=== PATIENT | female | born 1950 | race American Indian/Alaskan Native ===

== ENCOUNTER 2016-12-08 18:22 | Emergency (ER) | payer OTHER ==
[2016-12-08 18:38] VITALS: BP 173/76
--- NOTE | 2016-12-08 19:29 | EDM.PDOC ---
ED HPI Trauma - General Chief Complaint: Upper Extremity Injury/Pain Stated Complaint: LEFT WRIST CAST TOO TIGHT [phone] Time Seen by Provider: 12/08/16 18:55 Source: Reports: Patient History Limitations: Reports: No limitations - History of Present Illness INITIAL COMMENTS - FREE TEXT/NARRATIVE: Cast placed 11/25 for left 5th metacarpal fracture, pain with cast and got wet today. Was told if got wet to come to ED and have cast removed. Has metal splint at home from use prior to casting. Ortho consult done via phone by Dr. Cobb to front desk auxiliary provider at [facility]. May remove cast and follow up next week as scheduled Allergies/ADRs: Allergies No Known Allergies Allergy (Verified 12/08/16 18:38) Home Medications: Ambulatory Orders Aspirin [Halfprin] 81 mg PO DAILY 03/30/15 [Confirmed 12/08/16] Hydrochlorothiazide [Hydrochlorothiazide] 25 mg PO DAILY 03/30/15 [Confirmed 06/16] Lisinopril [Lisinopril] 40 mg PO DAILY 03/30/15 [Confirmed 12/08/16] atorvaSTATin [Lipitor] 10 mg PO BEDTIME 03/30/15 [Confirmed 12/08/16] glipiZIDE [Glipizide] 10 mg PO BID 03/30/15 [Confirmed 12/08/16] Montelukast Sodium 10 mg PO BEDTIME 04/02/15 [Confirmed 12/08/16] Albuterol [Proventil HFA] 2 puff INH ASDIRECTED 05/20/16 [Confirmed 12/08/16] Moxifloxacin [Vigamox 0.5% Ophth Soln] 1 drop EYELF QID 05/20/16 [Confirmed 06/16] Ranitidine [Zantac] 150 mg PO DAILY 05/20/16 [Confirmed 12/08/16] sitaGLIPtin Phos/Metformin HCl [Janumet 50-1,000 MG] 1 tab PO BID 05/20/16 [ Confirmed 12/08/16] Past Medical History HEENT History: Reports: Cataract Other HEENT History: wears glasses while awake Cardiovascular History: Reports: High cholesterol, Hypertension Respiratory History: Reports: Asthma Other Respiratory History: PLEURISY Other Gastrointestinal History: COLONIC TUBULAR ADENOMA - REMOVED 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 History: 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: Musculoskeletal History: Reports: Arthritis Other Musculoskeletal History: DISTAL ULNA, RADIUS, RADIAL AND ULNAR STYLOIDS AND DISTAL DISPHYSIS OF FIFTH METACARPAL Neurological History: Reports: None Psychiatric History: Reports: None Endocrine/Metabolic History: Reports: Diabetes, type II Hematologic History: Reports: None Immunologic History: Reports: None Oncologic (Cancer) History: Reports: None Dermatologic History: Reports: None - Infectious Disease History Infectious Disease History: Reports: Chicken pox - Past Surgical History Head Surgeries/Procedures: Reports: None HEENT Surgical History: Reports: Cataract surgery Other HEENT Surgeries/Procedures: INJECTION IN LEFT EYE EVERY 3 MONTHS (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, 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) Cardiovascular Surgical History: Reports: None Respiratory Surgical History: Reports: None GI Surgical History: Reports: Appendectomy, Colonoscopy, EGD Female Surgical History: Reports: Tubal ligation Endocrine Surgical History: Reports: None Neurological Surgical History: Reports: Other (see below) Other Neurological Surgeries/Procedures: CYST REMOVED FROM SPINE Musculoskeletal Surgical History: Reports: Other (see below) Other Musculoskeletal Surgeries/Procedures:: back surgery Oncologic Surgical History: Reports: None Dermatological Surgical History: Reports: None Social & Family History - Family History Cardiac: Reports: Hypertension Respiratory: Reports: Asthma, COPD : Reports: Dialysis Endocrine/Metabolic: Reports: Diabetes, type II - Tobacco Use Smoking Status *Q: Former Smoker Used Tobacco, but Quit: Yes Month Tobacco Last Used: 2011 Second Hand Smoke Exposure: No - Caffeine Use Caffeine Use: Reports: Coffee - Recreational Drug Use Recreational Drug Use: No Review of Systems - Review of Systems Review Of Systems: See Below Respiratory: Reports: No Symptoms Cardiovascular: Reports: no symptoms Musculoskeletal: Reports: hand pain (left, ) Skin: Reports: no symptoms Neurological: Reports: No Symptoms Trauma Exam - Physical Exam Exam: See Below Exam Limited By: No limitations General Appearance: Reports: alert, no apparent distress Head: Reports: atraumatic Respiratory Exam: Reports: no respiratory distress Cardiovascular: Reports: normal peripheral pulses Extremities: Reports: other (left short arm cast, intact mild swelling of hand good capillary refill.) Neurologic: Denies: sensory deficit Skin: Reports: Normal color, Warm/dry. Denies: Ecchymosis ED TRAUMA EXTREMITY PROCEDURES - Additional/Other Procedure(s) Other (Free Text) Procedure(s): cast removed. skin intact no redness. post xray. good alignment , calcification of fracture left 5th metacarpal noted. Course - Vital Signs Last Recorded V/S: Last Vital Signs Temp 96.8 F 12/08/16 18:35 Pulse 69 12/08/16 18:35 Resp 18 12/08/16 18:35 BP 173/76 H 12/08/16 18:35 Pulse Ox 98 12/08/16 18:35 - Orders/Labs/Meds Orders: Active Orders 24 hr Category Date Time Status CAST CARE [OM.PC] Routine Oth 12/08/16 19:03 Ordered Departure - Departure Time of Disposition: 19:44 Disposition: Home, Self-Care 01 Condition: good Clinical Impression: Fracture of metacarpal bone Qualifiers: Encounter type: subsequent encounter Metacarpal bone: fifth Fracture type: closed Metacarpal location: unspecified portion of metacarpal Fracture alignment : nondisplaced Laterality: left Fracture healing: with delayed healing Qualified Code(s): S62.307G - Unspecified fracture of fifth metacarpal bone, left hand, subsequent encounter for fracture with delayed healing Instructions: Metacarpal Fracture, [id number] Referrals: Zeke Zhao [Primary Care Provider] - Forms: ED Department Discharge Additional Instructions: hand splint follow up with ortho next week as scheduled avoid overuse or trauma to extremity - My Orders Last 24 Hours: My Active Orders 12/08/16 19:03 CAST CARE [OM.PC] Routine - Assessment/Plan Last 24 Hours: My Active Orders 12/08/16 19:03 CAST CARE [OM.PC] Routine
== END 2016-12-08 19:48 | disposition home or self-care (01) ==
LOC: DL.ED 18:22
DX: S62.327G Displaced fracture of shaft of fifth metacarpal bone, left hand, subsequent encounter for fracture with delayed healing (principal); E78.00 Pure hypercholesterolemia, unspecified; I10 Essential (primary) hypertension; J45.909 Unspecified asthma, uncomplicated; M19.90 Unspecified osteoarthritis, unspecified site; E11.9 Type 2 diabetes mellitus without complications; Z98.49 Cataract extraction status, unspecified eye; Z90.49 Acquired absence of other specified parts of digestive tract; Z98.51 Tubal ligation status; Z87.891 Personal history of nicotine dependence
CPT/HCPCS: 73120-LT; 99283

== ENCOUNTER 2019-12-28 14:11 | Emergency (ER) | payer BC, OTHER ==
[~2019-12-28 14:11] MED LIST: Ondansetron 4 MG/2 ML SDV IVPUSH ONE
--- NOTE | 2019-12-28 14:14 | EDM.PDOC ---
ED HPI GENERAL MEDICAL PROBLEM - General Stated Complaint: SEVERE ABDOMINAL PAIN Time Seen by Provider: 12/28/19 14:04 Source of Information: Reports: Patient History Limitations: Reports: No Limitations - History of Present Illness INITIAL COMMENTS - FREE TEXT/NARRATIVE: This 69 yo female patient reports to the ED with abdominal pain with nausea and vomiting. The patient reports her pain started this morning and has continued to get worse throughout the day. The patient reports she had fried chicken last night. The patient reports she has a history of gallstones. The patient reports she was seen for the gallstones in the ED, but has not had any follow-up with her primary care facility since that time. The patient did not attempt to get into see her primary care facility today. The patient reports she vomited x1 on the way to the ED which improved her symptoms. The patient reports most of her pain is in the right upper quadrant. 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) - Related Data Allergies Allergy/AdvReac Type Severity Reaction Status Date / Time No Known Allergies Allergy Verified 12/08/16 18:38 Home Meds: Home Meds Aspirin [Halfprin] 81 mg PO DAILY 03/30/15 [History] Lisinopril 40 mg PO DAILY 03/30/15 [History] atorvaSTATin [Lipitor] 10 mg PO BEDTIME 03/30/15 [History] glipiZIDE [Glipizide] 10 mg PO BID 03/30/15 [History] Montelukast Sodium 10 mg PO BEDTIME 04/02/15 [History] Albuterol [Proventil HFA] 2 puff INH ASDIRECTED 05/20/16 [History] Ranitidine [Zantac] 150 mg PO BID 05/20/16 [History] Isosorbide Mononitrate [Isosorbide Mononitrate ER] 30 mg PO DAILY 05/12/17 [ History] Saxagliptin HCl [Onglyza] 5 mg PO DAILY 05/12/17 [History] amLODIPine [Norvasc] 5 mg PO DAILY 05/12/17 [History] Past Medical History HEENT History: Reports: Cataract Other HEENT History: wears glasses while awake Cardiovascular History: Reports: High Cholesterol, Hypertension Respiratory History: Reports: Asthma Other Respiratory History: PLEURISY Other Gastrointestinal History: COLONIC TUBULAR ADENOMA - REMOVED 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 History: 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: Musculoskeletal History: Reports: Arthritis Other Musculoskeletal History: DISTAL ULNA, RADIUS, RADIAL AND ULNAR STYLOIDS AND DISTAL DISPHYSIS OF FIFTH METACARPAL Neurological History: Reports: None Psychiatric History: Reports: None Endocrine/Metabolic History: Reports: Diabetes, Type II Hematologic History: Reports: None Immunologic History: Reports: None Oncologic (Cancer) History: Reports: None Dermatologic History: Reports: None - Infectious Disease History Infectious Disease History: Reports: Chicken Pox - Past Surgical History Head Surgeries/Procedures: Reports: None HEENT Surgical History: Reports: Cataract Surgery Respiratory Surgical History: Reports: None GI Surgical History: Reports: Appendectomy, Colonoscopy, EGD Female Surgical History: Reports: Tubal Ligation Neurological Surgical History: Reports: Other (See Below) Musculoskeletal Surgical History: Reports: Other (See Below) Oncologic Surgical History: Reports: None Dermatological Surgical History: Reports: None Social & Family History - Family History Cardiac: Reports: Hypertension Respiratory: Reports: Asthma, COPD : Reports: Dialysis Endocrine/Metabolic: Reports: Diabetes, type II - Caffeine Use Caffeine Use: Reports: Coffee ED ROS GENERAL - Review of Systems Review Of Systems: Comprehensive ROS is negative, except as noted in HPI. ED EXAM, GI/ABD - Physical Exam Exam: See Below Exam Limited By: No Limitations General Appearance: Alert, WD/WN, Moderate Distress Eyes: Bilateral: Normal Appearance, EOMI Ears: Normal External Exam, Normal Canal, Hearing Grossly Normal, Normal TMs Nose: Normal Inspection, Normal Mucosa, No Blood Throat/Mouth: Normal Inspection, Normal Lips, Normal Teeth, Normal Gums, Normal Oropharynx, Normal Voice, No Airway Compromise Head: Atraumatic, Normocephalic Neck: Normal Inspection, Supple, Non-Tender, Full Range of Motion Respiratory/Chest: No Respiratory Distress, Lungs Clear, Normal Breath Sounds, No Accessory Muscle Use, Chest Non-Tender Cardiovascular: Normal Peripheral Pulses, Regular Rate, Rhythm, No Edema, No Gallop, No JVD, No Murmur, No Rub GI/Abdominal Exam: Normal Bowel Sounds, Soft, Non-Tender, No Organomegaly, No Distention, No Abnormal Bruit, No Mass, Pelvis Stable (Female) Exam: Deferred Rectal (Female) Exam: Deferred Back Exam: Normal Inspection, Full Range of Motion, NT Extremities: Normal Inspection, Normal Range of Motion, Non-Tender, Normal Capillary Refill, No Pedal Edema Neurological: Alert, Oriented, CN II-XII Intact, Normal Cognition, Normal Gait, Normal Reflexes, No Motor/Sensory Deficits Psychiatric: Normal Affect, Normal Mood Skin Exam: Warm, Dry, Intact, Normal Color, No Rash Lymphatic: No Adenopathy Course - Vital Signs Last Recorded V/S: Last Vital Signs Temp 36.9 C 12/28/19 16:22 Pulse 58 L 12/28/19 16:22 Resp 18 12/28/19 16:22 BP 123/69 12/28/19 16:22 Pulse Ox 99 12/28/19 16:22 - Orders/Labs/Meds Orders: Active Orders 24 hr Category Date Time Status EKG Documentation Completion [RC] URGENT Care 12/28/19 13:48 Ordered Labs: Laboratory Tests 12/28/19 12/28/19 Range/Units 14:02 14:02 WBC 11.0 H (5.0-10.0) 10^3/uL RBC 4.17 L (4.2-5.4) 10^6/uL Hgb 12.1 (12.0-16.0) g/dL Hct 37.1 (37.0-47.0) % MCV 89.0 (80-100) fL MCH 29.0 (27.0-34.0) pg MCHC 32.6 L (33.0-35.0) g/dL Plt Count 246 (150-450) 10^3/uL Neut % (Auto) 81.0 H (42.2-75.2) % Lymph % (Auto) 13.9 L (20.5-50.1) % Charles % (Auto) 4.3 (2-8) % Eos % (Auto) 0.7 L (1.0-3.0) % Baso % (Auto) 0.1 (0.0-1.0) % Sodium 135 L (136-145) mmol/L Potassium 4.0 (3.5-5.1) mmol/L Chloride 100 (98-107) mmol/L Carbon Dioxide 25 (21-32) mmol/L Anion Gap 14.0 H (7-13) mEq/L BUN 20 H (7-18) mg/dL Creatinine 1.05 H (0.55-1.02) mg/dL Est Cr Clr Drug Dosing 44.86 mL/min Estimated GFR (MDRD) 52 BUN/Creatinine Ratio 19.0 (No establ ref range) Glucose 187 H (74-99) mg/dL Calcium 8.9 (8.5-10.1) mg/dL Total Bilirubin 1.5 H (0.2-1.0) mg/dL AST 133 H (15-37) U/L ALT 73 H (14-59) U/L Alkaline Phosphatase 143 H (46-116) U/L Troponin I 0.018 (0.000-0.056) ng/mL Total Protein 7.3 (6.4-8.2) g/dL Albumin 3.5 (3.4-5.0) g/dL Globulin 3.8 Albumin/Globulin Ratio 0.9 Amylase 50 (25-115) U/L Lipase 152 (73-393) U/L Meds: Medications Discontinued Medications Generic Name Dose Route Start Last Admin Trade Name Freq PRN Reason Stop Dose Admin Iopamidol 100 ml 12/28/19 14:57 12/28/19 15:24 Isovue-300 (61%) IVPUSH 12/28/19 14:58 100 ml ONETIME ONE Administration Morphine Sulfate 2 mg 12/28/19 14:39 12/28/19 14:45 Morphine IVPUSH 12/28/19 14:40 2 mg ONETIME ONE Administration Ondansetron HCl 4 mg 12/28/19 14:06 12/28/19 14:30 Zofran IVPUSH 12/28/19 14:07 4 mg ONETIME ONE Administration Departure - Departure Time of Disposition: 16:24 Disposition: DC/Tfer to Acute Hospital 02 Condition: Fair Clinical Impression: Dilated bile duct - Discharge Information *PRESCRIPTION DRUG MONITORING PROGRAM REVIEWED*: Not Applicable *COPY OF PRESCRIPTION DRUG MONITORING REPORT IN PATIENT JOSUE: Not Applicable Forms: Interfacility Transfer EMTALA Care Plan Goals: Discussed the patient's history, examination, lab and CT results with Dr. Rodas (Hospitalist with [facility] in [place]). Dr. Rodas accepted the patient for continued evaluation and further management. The patient will be transported by [facility]. Sepsis Event Note - Evaluation Sepsis Screening Result: No Definite Risk - Focused Exam Vital Signs: Vital Signs Temp Pulse Resp BP Pulse Ox 12/28/19 16:22 36.9 C 58 L 18 123/69 99 12/28/19 15:22 37.1 C 62 18 147/63 H 99 12/28/19 13:52 37.1 C 68 18 174/64 H 96 Date Exam was Performed: 12/28/19 Time Exam was Performed: 16:24 - My Orders Last 24 Hours: My Active Orders 12/28/19 13:48 EKG Documentation Completion [RC] URGENT - Assessment/Plan Last 24 Hours: My Active Orders 12/28/19 13:48 EKG Documentation Completion [RC] URGENT
[2019-12-28] MEDS ORDERED: Morphine 2 MG/ML Syringe IVPUSH ONE (14:39)
[2019-12-28] MEDS ORDERED: Iopamidol 612 MG/ML 100 ML Bottle IVPUSH ONE (14:57)
--- NOTE | 2019-12-28 15:55 | CT ---
EXAMINATION: Abdomen Pelvis w Cont SEX: Female AGE: 69 years CLINICAL HISTORY: 69-year-old hypertensive 212 pound diabetic female who has had appendectomy and now in the emergency department complaining of RUQ ABDOMINAL PAIN. Scan technique: Volume acquisition of data from the abdomen and pelvis obtained without oral contrast but during the intravenous infusion 100 cc nonionic Isovue (3 cc/s via injector) while patient was lying supine on the Siemens multi slice scanner [place], [place]. All data archived in the PACS system for storage, reformatting and study. Interpretation: Abnormal. 1. Large concentrically calcified gallstone (RUQ) lodged in the region cystic duct. Dilated gallbladder with uniformly thin wall and no pericystic fluid. No abnormal dilatation of the intrahepatic biliary ducts but the extrahepatic (CBD) measures 12 mm diameter. 2. Large 3.5 cm diameter posterior midpole cortical cyst right kidney. No other cystic or solid renal cortical mass, signs of nephrolithiasis, or obstructive uropathy. Urinary bladder unremarkable. No sign of ventral wall or inguinal hernia. 3. Liver, stomach, spleen, pancreas and adrenal glands unremarkable. Specifically, no clear evidence of pancreatic mass. Normal caliber aortoiliac vessels. Calcifications but no aortic aneurysm or dissection. 4. No pelvic or abdominal mass lesion, mesenteric or retroperitoneal lymphadenopathy, inflammatory "dirty" peritoneal fat, signs of mechanical bowel obstruction, ascites or free intraperitoneal air. Surgical clips tip of the cecum RLQ. 5. Chronic multilevel lower thoracic and lower lumbar L4-5 disc disease. No pathologic skeletal lesion, lumbar fracture or spondylolisthesis. CONCLUSION: Abnormal i.e. diseased gallbladder. *Dilated common bile duct (without clear evidence of choledocholithiasis). Appendectomy. No sign of primary or metastatic intraperitoneal malignancy.
[2019-12-28 16:23] VITALS: PULSE 58
[2019-12-28 17:28] VITALS: BP 142/62
== END 2019-12-28 18:25 ==
LOC: DL.ED 14:11
DX: K83.8 Other specified diseases of biliary tract (principal); E78.00 Pure hypercholesterolemia, unspecified; I10 Essential (primary) hypertension; J45.909 Unspecified asthma, uncomplicated; M19.90 Unspecified osteoarthritis, unspecified site; E11.9 Type 2 diabetes mellitus without complications; Z79.82 Long term (current) use of aspirin; Z79.84 Long term (current) use of oral hypoglycemic drugs; Z79.899 Other long term (current) drug therapy
CPT/HCPCS: 36415; 74177; 80053; 82150; 83690; 84484; 85025; 93005; 96374; 96375; 99285; J2270; J2405; Q9967

== ENCOUNTER 2022-10-24 02:29 | Emergency (ER) | payer BC, OTHER ==
[2022-10-24] MEDS ORDERED: Sodium Chloride 0.9% 1,000 ML IV ONE (03:42)
[2022-10-24] MEDS ORDERED: Ketorolac 30 MG/ML SDV IVPUSH ONE (03:42)
[2022-10-24] MEDS ORDERED: Codeine/guaiFENesin 10-100 MG/5 ML Syrup 5 ML Cup PO ONE (04:15)
[2022-10-24 06:10] VITALS: BP 123/67; PULSE 76
== END 2022-10-24 06:14 | disposition home or self-care (01) ==
LOC: DL.ED 02:29
DX: S39.012A Strain of muscle, fascia and tendon of lower back, initial encounter (principal); J45.909 Unspecified asthma, uncomplicated; E78.00 Pure hypercholesterolemia, unspecified; I10 Essential (primary) hypertension; E11.9 Type 2 diabetes mellitus without complications; Z79.82 Long term (current) use of aspirin; Z79.899 Other long term (current) drug therapy; Z79.84 Long term (current) use of oral hypoglycemic drugs
CPT/HCPCS: 74176; 81001; 96361; 96374; 99284; A9270; J1885; J7030

== ENCOUNTER 2022-12-07 16:35 | Emergency (ER) | payer BC, OTHER ==
[2022-12-07] MEDS ORDERED: Clopidogrel 75 MG Tab ONE (16:46)
[2022-12-07 16:51] VITALS: BP 135/55; PULSE 70
== END 2022-12-07 17:03 | disposition home or self-care (01) ==
LOC: DL.ED 16:35
DX: Z91.148 Patient's other noncompliance with medication regimen for other reason (principal); E78.00 Pure hypercholesterolemia, unspecified; I10 Essential (primary) hypertension; J45.909 Unspecified asthma, uncomplicated; M19.90 Unspecified osteoarthritis, unspecified site; E11.9 Type 2 diabetes mellitus without complications; Z79.82 Long term (current) use of aspirin; Z79.899 Other long term (current) drug therapy; Z79.51 Long term (current) use of inhaled steroids
CPT/HCPCS: 99281; 99283

== ENCOUNTER 2023-11-26 20:44 | Emergency (ER) | payer BC, OTHER ==
[2023-11-26 21:14] VITALS: BP 163/79; PULSE 63
== END 2023-11-26 21:58 | disposition home or self-care (01) ==
LOC: DL.ED 20:44
DX: L29.9 Pruritus, unspecified (principal); I10 Essential (primary) hypertension; J45.909 Unspecified asthma, uncomplicated; E78.00 Pure hypercholesterolemia, unspecified; E11.9 Type 2 diabetes mellitus without complications; Z79.84 Long term (current) use of oral hypoglycemic drugs; Z86.19 Personal history of other infectious and parasitic diseases; Z90.49 Acquired absence of other specified parts of digestive tract; Z79.899 Other long term (current) drug therapy; Z79.82 Long term (current) use of aspirin; Z79.51 Long term (current) use of inhaled steroids
CPT/HCPCS: 99282; 99283

== ENCOUNTER 2024-01-08 06:22 | Day surgery (SDC) | payer BC, OTHER ==
[~2024-01-08 06:22] MED LIST changes: +Midazolam 1 MG/ML 2 ML SDV ONE; -Ondansetron 4 MG/2 ML SDV IVPUSH ONE; +fentaNYL 100 MCG/2 ML SDV ONE
[2024-01-08] MEDS: Dextrose 5%-0.45% NaCl 1,000 ML IV SCH (06:41)
[2024-01-08] MEDS: fentaNYL 100 MCG/2 ML SDV IV ONE ×3 (07:22→07:37)
[2024-01-08] MEDS: Midazolam 1 MG/ML 2 ML SDV IV ONE ×6 (07:23→07:33)
[2024-01-08 09:38] VITALS: BP 150/62; PULSE 58
== END 2024-01-08 09:20 | disposition home or self-care (01) ==
LOC: DL.ENDO 06:22
PROVIDERS: ATTEND Internal Medicine Gastroenterology
DX: Z12.11 Encounter for screening for malignant neoplasm of colon (principal); K57.30 Diverticulosis of large intestine without perforation or abscess without bleeding; J45.909 Unspecified asthma, uncomplicated; E11.9 Type 2 diabetes mellitus without complications; K21.9 Gastro-esophageal reflux disease without esophagitis; I10 Essential (primary) hypertension; E66.9 Obesity, unspecified; E78.5 Hyperlipidemia, unspecified; I25.10 Atherosclerotic heart disease of native coronary artery without angina pectoris; Z95.5 Presence of coronary angioplasty implant and graft; Z86.010 Personal history of colon polyps; Z68.36 Body mass index [BMI] 36.0-36.9, adult
CPT/HCPCS: 45378; J2250; J3010; J7042